=== PATIENT | male | born 1965 | race Two or more races ===

== ENCOUNTER 2025-06-06 00:53 | Inpatient (IN) | payer BC, OTHER ==
[~2025-06-06] VITALS: Ht 175.3 cm; Wt 105.1 kg
[2025-06-06] VITALS (9 sets, daily range): BP systolic 115–150; BP diastolic 62–102; PULSE 80–92; RESP 11–18; TEMP 96.9–97.9; O2SAT 90–98
[2025-06-06 01:14] LABS: Hematocrit 41.9 % (41.0-53.0); Hemoglobin 14.3 g/dL (13.5-17.5); Mean Corpuscular Hemoglobin 31.1 pg (28.0-32.0); Mean Corpuscular Volume 91.0 fL (80.0-100.0); Nucleated Red Blood Cells % 0.1 %
[2025-06-06 01:20] LABS: Chloride 106 mmol/L (98-107); Potassium 3.8 mmol/L (3.5-5.1); Sodium 144 mmol/L (136-145)
[2025-06-06 01:21] LABS: Anion Gap 9 (5-15); Calcium 8.8 mg/dL (8.7-10.4); Carbon Dioxide 29 mmol/L (20-31)
[2025-06-06 01:26] LABS: Glucose 109 mg/dL (74-106)
--- NOTE | 2025-06-06 01:44 | ED.PDOC ---
HPI Comments 60 year old male no reported past medical history presenting for evaluation of recurrent chest pain over the past 4 days. States he has no medical history, however, states that [facility] and they have told him many times that his blood pressure is slightly elevated, does not take any medications for this. States for the past 4 days, he has been having intermittent episodes of chest pains, happening randomly about 2-3 times per day. For the past 2 hours, he has been experiencing midsternal chest pains again, aching, constant nonradiating. Persistence prompted the patient to come to the emergency room. Upon arrival blood pressure was 166/102 mm Hg Chief Complaint: Chest Pain Time Seen by MD: 01:44 Reviewed Notes: Nurses Notes Allergies: Coded Allergies: NO KNOWN ALLERGIES (Unverified , 06/06/25) Information Source: Patient Mode of Arrival: Ambulatory Past Medical History PAST MEDICAL HISTORY: Denies Surgical History: Denies all surgeries Family History Family History: Reviewed,noncontributory to illness Social History Smoker: Cigarettes Alcohol: Denies ETOH Use Drugs: Denies Drug Use Lives In: Home Constitutional: denies: chills, diaphoresis, fatigue, fever, malaise, sweats, weakness, others EENTM: denies: blurred vision, double vision, ear bleeding, ear discharge, ear drainage, ear pain, ear ringing, eye pain, eye redness, hearing loss, mouth pain, mouth swelling, nasal discharge, nose bleeding, nose congestion, nose pain, photophobia, tearing, throat pain, throat swelling, voice changes, others Respiratory: denies: cough, hemoptysis, orthopnea, SOB at rest, shortness of breath, SOB with excertion, stridor, wheezing, others Cardiovascular: reports: chest pain; denies: dizzy spells, diaphoresis, Dyspnea on exertion, edema, irregular heart beat, left arm pain, lightheadedness, palpitations, PND, syncope, others Gastrointestinal: denies: abdomen distended, abdominal pain, blood streaked bowels, constipated, diarrhea, dysphagia, difficulty swallowing, hematemesis, melena, nausea, poor appetite, poor fluid intake, rectal bleeding, rectal pain, vomiting, others Genitourinary: denies: burning, dysuria, flank pain, frequency, hematuria, incontinence, penile discharge, penile sore, pain, testicle pain, testicle swelling, urgency, others Neurological: denies: dizziness, fainting, headache, left sided numbness, left sided weakness, numbness, paresthesia, pre-existing deficit, right sided numbness, right sided weakness, seizure, speech problems, tingling, tremors, weakness, others Musculoskeletal: denies: back pain, gout, joint pain, joint swelling, muscle pain, muscle stiffness, neck pain, others Integumetry: denies: bruises, change in color, change in hair/nails, dryness, laceration, lesions, lumps, rash, wounds, others Allergic/Immunocompromised: denies: Difficulty Healing, Frequent Infections, Hives, Itching, others Hematologic/Lymphatic: denies: anemia, blood clots, easy bleeding, easy bruising, swollen glands, others Endocrine: denies: excessive hunger, excessive sweating, excessive thirst, excessive urination, flushing, intolerance to cold, intolerance to heat, unexplained weight gain, unexplained weight loss, others Psychiatric: denies: anxiety, bipolar disorder, depression, hopeless, panic disorder, schizophrenia, sleepless, suicidal, others Physical Exam General Appearance: No Apparent Distress, Normal HEENT: Normal ENT Inspection, Pharynx Normal, TMs Normal Neck: Full Range of Motion, Non-Tender, Normal, Normal Inspection Respiratory: Chest Non-Tender, Lungs Clear, No Accessory Muscle Use, No Respiratory Distress, Normal Breath Sounds Cardiovascular: No Edema, No JVD, No Murmur, No Gallop, Normal Peripheral Pulses, Regular Rate/Rhythm Breast Exam: Deferred Gastrointestinal: No Organomegaly, Non Tender, No Pulsatile Mass, Normal Bowel Sounds, Soft Genitalia: Deferred Pelvic: Deferred Rectal: Deferred Extremities: No calf tenderness, Normal capillary refill, Normal inspection, Normal range of motion, Non-tender, No pedal edema Musculoskeletal : Apperance: Normal Neurologic: Alert, tennis 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 Was a procedure done?: No CP Differential Dx Differential Diagnosis: Angina, Anxiety / Panic Attack Differential Diagnosis: Angina, Chest Wall Pain, Costochondritis, Esophageal reflux/spasm, Gastritis, Myocardial Infarction X-Ray, Labs, Meds, VS Vital Signs Date Time Temp Pulse Resp B/P (MAP) Pulse Ox O2 Delivery O2 Flow Rate FiO2 06/06/25 02:15 98.6 77 16 158/102 (120) 95 98.6 06/06/25 02:15 Room Air* 0 21 06/06/25 02:14 158/106 06/06/25 01:04 87 06/06/25 01:00 97.5 71 18 166/107 99 97.5 Lab Test 06/06/25 02:27 06/06/25 01:01 Range/Units Troponin I High Sensitivity 3384 *H 3011 *H </=54 ng/L White Blood Count 7.1 4.4-10.8 10^3/uL Red Blood Count 4.60 4.5-5.90 10^6/uL Hemoglobin 14.3 13.5-17.5 g/dL Hematocrit 41.9 41.0-53.0 % Mean Corpuscular Volume 91.0 80.0-100.0 fL Mean Corpuscular Hemoglobin 31.1 28.0-32.0 pg Mean Corpuscular Hemoglobin Concent 34.2 32.0-36.0 g/dL Red Cell Distribution Width 13.9 11.8-14.3 % Platelet Count 236 140-450 10^3/uL Mean Platelet Volume 9.1 6.9-10.8 fL Neutrophils (%) (Auto) 48.3 37.0-80.0 % Lymphocytes (%) (Auto) 38.0 10.0-50.0 % Monocytes (%) (Auto) 8.9 0.0-12.0 % Eosinophils (%) (Auto) 4.0 0.0-7.0 % Basophils (%) (Auto) 0.8 0.0-2.0 % Neutrophils # (Auto) 3.4 1.6-8.6 10 ^3/uL Lymphocytes # (Auto) 2.7 0.4-5.4 10 ^3/uL Monocytes # (Auto) 0.6 0-1.3 10 ^3/uL Eosinophils # (Auto) 0.3 0-0.8 10 ^3/uL Basophils # (Auto) 0.1 0-0.2 10 ^3/uL Nucleated Red Blood Cells 0.1 % Prothrombin Time 9.5 9.3-11.8 sec Prothrombin Time INR 0.89 L 0.9-1.15 Activated Partial Thromboplast Time 26.4 24.5-34.5 SEC Sodium Level 144 136-145 mmol/L Potassium Level 3.8 3.5-5.1 mmol/L Chloride Level 106 98-107 mmol/L Carbon Dioxide Level 29 20-31 mmol/L Anion Gap 9 5-15 Blood Urea Nitrogen 14 9-23 mg/dL Creatinine 0.94 0.700-1.30 mg/dL Glomerular Filtration Rate Calc 92 >90 mL/min BUN/Creatinine Ratio 14.9 10.0-20.0 Serum Glucose 109 H 74-106 mg/dL Hemoglobin A1c Pending Calcium Level 8.8 8.7-10.4 mg/dL B-Type Natriuretic Peptide 143.60 0-100 pg/mL Triglycerides Level Pending Cholesterol Level Pending LDL Cholesterol Pending HDL Cholesterol Pending Vitamin B12 Level Pending Vitamin D 25-Hydroxy Pending Thyroid Stimulating Hormone (TSH) Pending Current Medications Medications (Trade) Dose Ordered Sig/Glenn Route Start Time Stop Time Status Last Admin Nitroglycerin (Ntrostat Sublingual) 0.4 mg ONCE ONCE SL 06/06/25 01:45 06/06/25 01:46 DC 06/06/25 02:14 Aspirin 364 mg ONCE ONCE PO 06/06/25 01:45 06/06/25 01:46 DC 06/06/25 02:12 Atorvastatin Calcium (Lipitor) 80 mg ONCE ONCE PO 06/06/25 01:45 06/06/25 01:46 DC 06/06/25 02:12 Heparin Sodium (Porcine) 4,000 units ONCE ONCE IV 06/06/25 01:45 06/06/25 01:46 DC 06/06/25 02:11 Heparin Sodium/ Dextrose 250 ml @ 10 mls/hr Q24H IV 06/06/25 01:45 06/06/25 02:51 Time of 1ST Reevaluation: 01:41 Reevaluation 1ST: Unchanged Patient Education/Counseling: Diagnosis, Treatment Family Education/Counseling: No Family Present SEPSIS Sepsis Screen Date sepsis recognized/suspect: Jun 06, 2025 Time Sepsis recognized/suspect: 51 Recent Procedure: No On Antibiotic Therapy: No Respiratory Rate >20: No Heart Rate >90: No Temp<36 C (96.8 F) or >38.3 C: No SBP <90 or MAP <65 mmHG: No New Acute Mental Status Change: No Is the patient on CPAP, BIPAP,: No Physician Orders Chest Portable (06/06/25 01:18) Electrocardigram (06/06/25 00:57) Troponin-I Hs (06/06/25 03:57) Electrocardigram (06/06/25 01:57) Electrocardigram (06/06/25 03:57) Platelet Monitoring (06/06/25 01:44) Heparin Per Standardized Proce (06/06/25 01:44) Discontinue All Im Injections (06/06/25 01:44) Heparin Drip/D5w 100units/Ml (06/06/25 01:45) Stat Ekg For Chest Pain (06/06/25 01:44) Vital Signs Date Time Temp Pulse Resp B/P (MAP) Pulse Ox O2 Delivery O2 Flow Rate FiO2 06/06/25 02:15 98.6 77 16 158/102 (120) 95 98.6 06/06/25 02:15 Room Air* 0 21 06/06/25 02:14 158/106 06/06/25 01:04 87 06/06/25 01:00 97.5 71 18 166/107 99 97.5 Laboratory Tests Test 06/06/25 01:01 White Blood Count 7.1 10^3/uL (4.4-10.8) Medications Medications Dose Ordered Sig/Glenn Route Start Time Stop Time Status Last Admin Dose Admin Aspirin 364 mg ONCE ONCE PO 06/06/25 01:45 06/06/25 01:46 DC 06/06/25 02:12 Atorvastatin Calcium 80 mg ONCE ONCE PO 06/06/25 01:45 06/06/25 01:46 DC 06/06/25 02:12 Heparin Sodium (Porcine) 4,000 units ONCE ONCE IV 06/06/25 01:45 06/06/25 01:46 DC 06/06/25 02:11 Heparin Sodium/ Dextrose 250 ml @ 10 mls/hr Q24H IV 06/06/25 01:45 06/06/25 02:51 Nitroglycerin 0.4 mg ONCE ONCE SL 06/06/25 01:45 06/06/25 01:46 DC 06/06/25 02:14 Departure 1 Departure Time of Disposition: 02:00 (60-year-old male with no reported past medical history reporting for midsternal chest pain over the past 4 days. Although he reports no past medical history he is noted to have elevated blood pressure and has been told in the past that he has elevated blood pressure, likely undiagnosed hypertension. Given the midsternal pressure-like chest discomfort could be very high risk for ACS. Patient's initial high sensitivity greater than 3000. EKG with no ST elevations, seems consistent with an NSTEMI. Patient was given nitroglycerin, aspirin, high-dose statin. Started on heparin drip. Feeling improved after interventions. Given that the discomfort has been going on for 4 days will defer to the admitting team to consult Cardiology in the morning.) Impression: Primary Impression: Midsternal chest pain Additional Impression: NSTEMI (non-ST elevated myocardial infarction) Disposition: ADMITTED INPATIENT Admit to: Tele Condition: Critical Critical Care Note Critical Care Time?: Yes (35 min-critical care time only) Critical care comment: Patient with NSTEMI requiring aspirin, statin, heparinization Stability Stability form required: No Heart Score Heart Score: Heart Score Response (Comments) Value History Moderate Suspicious 1 EKG Repolarization Disturb 1 Age 45-64 1 Risk Factors 1 or 2 risk factors 1 Troponin >3 x's Normal limit 2 Total 6 I personally scribed for JAXON STONE MD ([email or web address]) on 06/06/25 at 01:44. Electronically submitted by Aquilino Parra ([email or web address]). JAXON STONE MD Jun 06, 2025 01:44
--- NOTE | 2025-06-06 01:46 | DVH ---
CHEST RADIOGRAPH Indication: CP Technique: Single frontal view of the chest was obtained COMPARISON: None FINDINGS: Lines and Tubes: None Lungs: Clear Pleura: No effusion. No pneumothorax. Cardiomediastinal contours: Unremarkable Bones: Unremarkable IMPRESSION: 1. No acute disease.
[2025-06-06] MEDS: HEPARIN SODIUM (PORCINE) 5000 UNITS/ML 1ML VIAL IV ONE (02:11)
[2025-06-06] MEDS: ATORVASTATIN 20 MG TAB PO ONE (02:12)
[2025-06-06] MEDS: NITROGLYCERIN 0.4 MG SL TAB SL ONE (02:14)
[2025-06-06 02:17] LABS: BUN/Creatinine Ratio 14.9 (10.0-20.0); Blood Urea Nitrogen 14 mg/dL (9-23)
[2025-06-06] MEDS ORDERED: MORPHINE SULFATE INJ 2 MG/ml SYRG IV PRN (02:30)
[2025-06-06] MEDS ORDERED: NITROGLYCERIN 0.4 MG SL TAB SL PRN (02:30)
[2025-06-06 02:32] LABS: INR 0.89 (0.9-1.15); Partial Thromboplastin Time 26.4 SEC (24.5-34.5); Prothrombin Time 9.5 sec (9.3-11.8)
--- NOTE | 2025-06-06 02:49 | DVHHPRES ---
History of Present Illness Resident Creating Document: HOMERO SHEN RESIDENT History of Present Illness This is a 60-year-old male apparently no past medical history came to ER with a complaint of retrosternal chest pain for 4 days on and off, pain persist 5-10 minutes in each episode associated with sweating , fatigue, visual disturbance. Chest pain was 9/10 intensity, occasionally radiate to the left arm, no aggravating factor, took ibuprofen which does not help and patient finally decided came to ER. Patient denies any cardiac disease in past, never follow-up with Cardiology, no stress test or echo done before. Patient currently denies any fever, SOB, cough, abdominal pain, headache, dysuria or any other focal weakness. Patient used to drink beer daily but no history of binge drinking. Past medical history/: As above Past surgical: Nothing contributory Family history:-father post-prostate cancer Personal: Drink beer daily, current smoker but denies any illicit drug use. Allergy: No known allergy PCP: Not selected Home medication: None Review of Systems Constitutional: Yes: Sweats, Malaise; No: Fever, Chills, Weakness, Other Eyes: No: Pain, Vision change, Conjunctivae inflammation, Eyelid inflammation, Other, Redness ENT: No: Ear pain, Ear discharge, Nose pain, Nose discharge, Nose congestion, Mouth pain, Mouth swelling, Throat pain, Throat swelling, Other Respiratory: No: Cough, Dry, Shortness of breath, SOB with excertion, Wheezing, Hemoptysis, Pleuritic Pain, Sputum, Wheezing, Other Cardiovascular: Chest Pain; No: Palpitations, Orthopnea, Paroxysmal Noc. Dyspnea, Edema, Lt Headedness, Other Gastrointestinal: No: Nausea, Vomiting, Abdominal Pain, Diarrhea, Constipation, Melena, Hematochezia, Other Genitourinary: No Dysuria, No Frequency, No Incontinence, No Hematuria, No Retention, No Other Musculoskeletal: No: other, neck pain, shoulder pain, arm pain, back pain, hand pain, leg pain, foot pain Skin: No: Rash, Lesions, Jaundice, Bruising, Other Neurological: No: Weakness, Numbness, Incoordination, Change in speech, Confusion, Seizures, Other Allergies: Coded Allergies: NO KNOWN ALLERGIES (Unverified , 06/06/25) Medications Current Medications Medications Dose Ordered Sig/Glenn Route Start Time Stop Time Status Last Admin Dose Admin Heparin Sodium/ Dextrose 250 ml @ 12.612 mls/ hr [id number] IV 06/06/25 01:45 UNV Exam Vital Signs Vital Signs Date Time Temp Pulse Resp B/P (MAP) Pulse Ox O2 Delivery O2 Flow Rate FiO2 06/06/25 02:14 158/106 06/06/25 01:04 87 06/06/25 01:00 97.5 18 99 97.5 General Appearance: Alert, Oriented X3, Cooperative, moderate distress HEENT: Atraumatic, PERRLA, EOMI Respiratory: Clear to auscultation, Normal air movement Cardiovascular: Regular rate, Normal S1, Normal S2, No murmurs Abdominal: Normal bowel sounds, No tenderness, No hepatospenomegaly Extremities: No clubbing, No cyanosis, No edema Skin: No rashes, No breakdown Neuro: Normal gait, Normal speech, Strength at 5/5 X4 ext, Cranial nerves 3-12 NL Psych/Mental Status: Mental status NL, Mood NL Labs/Xrays Labs Test 06/06/25 02:27 06/06/25 01:01 Range/Units White Blood Count 7.1 4.4-10.8 10^3/uL Red Blood Count 4.60 4.5-5.90 10^6/uL Hemoglobin 14.3 13.5-17.5 g/dL Hematocrit 41.9 41.0-53.0 % Mean Corpuscular Volume 91.0 80.0-100.0 fL Mean Corpuscular Hemoglobin 31.1 28.0-32.0 pg Mean Corpuscular Hemoglobin Concent 34.2 32.0-36.0 g/dL Red Cell Distribution Width 13.9 11.8-14.3 % Platelet Count 236 140-450 10^3/uL Mean Platelet Volume 9.1 6.9-10.8 fL Neutrophils (%) (Auto) 48.3 37.0-80.0 % Lymphocytes (%) (Auto) 38.0 10.0-50.0 % Monocytes (%) (Auto) 8.9 0.0-12.0 % Eosinophils (%) (Auto) 4.0 0.0-7.0 % Basophils (%) (Auto) 0.8 0.0-2.0 % Neutrophils # (Auto) 3.4 1.6-8.6 10 ^3/uL Lymphocytes # (Auto) 2.7 0.4-5.4 10 ^3/uL Monocytes # (Auto) 0.6 0-1.3 10 ^3/uL Eosinophils # (Auto) 0.3 0-0.8 10 ^3/uL Basophils # (Auto) 0.1 0-0.2 10 ^3/uL Nucleated Red Blood Cells 0.1 % Prothrombin Time 9.5 9.3-11.8 sec Prothrombin Time INR 0.89 L 0.9-1.15 Activated Partial Thromboplast Time 26.4 24.5-34.5 SEC Sodium Level 144 136-145 mmol/L Potassium Level 3.8 3.5-5.1 mmol/L Chloride Level 106 98-107 mmol/L Carbon Dioxide Level 29 20-31 mmol/L Anion Gap 9 5-15 Blood Urea Nitrogen 14 9-23 mg/dL Creatinine 0.94 0.700-1.30 mg/dL Glomerular Filtration Rate Calc 92 >90 mL/min BUN/Creatinine Ratio 14.9 10.0-20.0 Serum Glucose 109 H 74-106 mg/dL Calcium Level 8.8 8.7-10.4 mg/dL B-Type Natriuretic Peptide 143.60 0-100 pg/mL SEPSIS Sepsis Screen Date sepsis recognized/suspect: Jun 06, 2025 Time Sepsis recognized/suspect: 51 Recent Procedure: No On Antibiotic Therapy: No Respiratory Rate >20: No Heart Rate >90: No Temp<36 C (96.8 F) or >38.3 C: No SBP <90 or MAP <65 mmHG: No New Acute Mental Status Change: No Is the patient on CPAP, BIPAP,: No Physician Orders Chest Portable (06/06/25 01:18) Electrocardigram (06/06/25 00:57) Troponin-I Hs (06/06/25 01:57) Troponin-I Hs (06/06/25 03:57) Electrocardigram (06/06/25 01:57) Electrocardigram (06/06/25 03:57) Platelet Monitoring (06/06/25 01:44) Heparin Per Standardized Proce (06/06/25 01:44) Discontinue All Im Injections (06/06/25 01:44) Heparin Drip/D5w 100units/Ml (06/06/25 01:45) Stat Ekg For Chest Pain (06/06/25 01:44) Admit (06/06/25 02:28) Code Status (06/06/25 02:28) Cardiac Diet-2gna,Lofat,Lochol (06/06/25 Breakfast) Echo 2d Mode Cardiac Dop (06/06/25 02:28) Nitroglycerin Sublingual (Ntrostat Subli (06/06/25 02:30) Morphine Sulfate Injection (06/06/25 02:30) Oxygen By Nasal Cannula (06/06/25 02:28) Notify Of Changes From Base (06/06/25 02:28) Lens Grinder For 24 Hours (06/06/25 02:28) Emergency Dysrhythmia Protocol (06/06/25 02:28) Rhythm Strips Once Every Shift (06/06/25 02:28) Pantoprazole Tablet (Protonix Tablet) (06/06/25 06:00) Aspirin Enteric Coated Tablet (Ecotrin E (06/06/25 10:00) Atorvastatin (Lipitor) (06/06/25 22:00) * Cardiology Consult (06/06/25 02:33) Vital Signs Date Time Temp Pulse Resp B/P (MAP) Pulse Ox O2 Delivery O2 Flow Rate FiO2 06/06/25 02:14 158/106 06/06/25 01:04 87 06/06/25 01:00 97.5 71 18 166/107 99 97.5 Laboratory Tests Test 06/06/25 01:01 White Blood Count 7.1 10^3/uL (4.4-10.8) Medications Medications Dose Ordered Sig/Glenn Route Start Time Stop Time Status Last Admin Dose Admin Aspirin 364 mg ONCE ONCE PO 06/06/25 01:45 06/06/25 01:46 DC 06/06/25 02:12 364 MG Atorvastatin Calcium 80 mg ONCE ONCE PO 06/06/25 01:45 06/06/25 01:46 DC 06/06/25 02:12 80 MG Heparin Sodium (Porcine) 4,000 units ONCE ONCE IV 06/06/25 01:45 06/06/25 01:46 DC 06/06/25 02:11 4,000 UNITS Nitroglycerin 0.4 mg ONCE ONCE SL 06/06/25 01:45 06/06/25 01:46 DC 06/06/25 02:14 0.4 MG Assessment/Plan Assessment/Plan Acute chest pain due to NSTEMI Rule out alcohol induced cardiomyopathy Hypertensive heart disease In ER patient received nitroglycerin, aspirin loading dose, atorvastatin, heparin drip EKG: Sinus rhythm, no acute ST changes, heart rate 87, QTC 483 PT PTT BNP : 143.60 Troponin: 3011 repeat troponin 3384> 3539 CXR: No acute cardiopulmonary disease Aspirin Atorvastatin Losartan Heparin drip Nitroglycerin sublingually p.r.n. Morphine for chest pain as needed. Monitor EKG, lab, ECHO Cardiology consult Prediabetic, HbA1C 5.8 Mixed hyperlipidemia - Counseled patient regarding low carb diet, weight loss, lifestyle modification and physical exercise TG 193, total cholesterol 267, LDL 189, HDL 50 Atorvastatin Vitamin D deficiency - Vitamin-D 03687 units Q 7D Alcohol use disorder Drinks beer daily Counseling done. Current smoker >13 minutes spent for counseling. Obesity, BMI 34.2 LIFE STYLE MODIFICATION. Diet: NPO DVT prophylaxis: Heparin GI prophylaxis: Pantoprazole Goals of care discussion. More than 27 minute spent with patient. Full code status. Case discussed with Dr. Paul. Plan discussed with: Patient, Other (Nurse, girlfriend-Soheila) My Orders Orders - HOMERO SHEN RESIDENT Procedure Category Date Status Time Admit ADMIT 06/06/25 Transmitted 02:28 Code Status CODE 06/06/25 Transmitted 02:28 Cardiac DIET 06/06/25 Transmitted Diet-2gna,Lofat,Lochol Breakfast Echo 2d Mode Cardiac US 06/06/25 Logged DOP 02:28 Nitroglycerin PHA 06/06/25 Logged Sublingual (Ntrostat 02:30 Morphine Sulfate PHA 06/06/25 Logged Injection 02:30 Oxygen By Nasal RT 06/06/25 Transmitted Cannula 02:28 Notify Of Changes [facility] 06/06/25 In Process From Base 02:28 Lens Grinder For [facility] 06/06/25 In Process 24 Hours 02:28 Emergency Dysrhythmia [facility] 06/06/25 In Process Protocol 02:28 Rhythm Strips Once [facility] 06/06/25 In Process Every Shift 02:28 Pantoprazole Tablet [facility] 06/06/25 Logged (Protonix Tablet) 06:00 Aspirin Enteric PHA 06/06/25 Logged Coated Tablet 10:00 Atorvastatin (Lipitor) PHA 06/06/25 Logged 22:00 * Cardiology Consult CONS 06/06/25 Verified 02:33 Visit Coding STANDARD RES Billing Provider: BRYN PAUL MD Date of Service if different f: Jun 06, 2025 Common Visit Codes: 67104-GPNYABH INP/OBS CARE (HIGH) Secondary Visit Codes: 88691-[id number] CARE PLAN 30 MINUTES HOMERO SHEN RESIDENT Jun 06, 2025 02:49 VERITO SHANKS RESIDENT Jun 06, 2025 04:31
[2025-06-06] MEDS: HEPARIN DRIP/D5W 100UNITS/ML 250 ML IV SCH ×2 (02:51→10:12)
--- NOTE | 2025-06-06 03:52 | ECG ---
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
[2025-06-06] MEDS: SODIUM CHLORIDE 0.9% 1,000 ML IV SCH (04:11)
[2025-06-06 04:32] LABS: Cholesterol 267 mg/dL (< 200); HDL Cholesterol 58 mg/dL (40-59); Triglycerides 193 mg/dL (< 150)
[2025-06-06] MEDS: PANTOPRAZOLE 40 MG TAB PO SCH (06:00)
--- NOTE | 2025-06-06 06:48 | ECG ---
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
[2025-06-06 08:45] LABS: Urine Budding Yeast OCCASIONAL /hpf (None Seen); Urine Protein, UAD TRACE (Negative)
[2025-06-06 09:07] LABS: Amphetamine Screen, Urine Pos (NEGATIVE); Barbiturate Scree,Urine Neg (NEGATIVE); Benzodiazephine Screen, Urine Neg (NEGATIVE); Cannabinoid Screen, Urine Neg (NEGATIVE); Cocaine Screen, Urine Neg (NEGATIVE); Opiate Scree,Urine Neg (NEGATIVE); Phencyclidine Screen, Urine Neg (NEGATIVE)
[2025-06-06 09:27] LABS: Magnesium 1.9 mg/dL (1.6-2.6); Triglycerides 123.0 mg/dL (< 150)
[2025-06-06 09:29] LABS: HDL Cholesterol 57.0 mg/dL (40-59)
[2025-06-06 09:31] LABS: Cholesterol 253.0 mg/dL (< 200)
[2025-06-06 09:40] LABS: INR 0.93 (0.9-1.15); Partial Thromboplastin Time 36.3 SEC (24.5-34.5); Prothrombin Time 9.9 sec (9.3-11.8)
--- NOTE | 2025-06-06 09:53 | DVHINCON2 ---
Date Seen: Jun 06, 2025 Referring Physician MD [place] resident Reason for Consultation NSTEMI History of Present Illness This is a 60-year-old male patient who presents to the emergency room with chief complaint of chest pain. The patient reports that the chest pain began approximately four days ago. He reports that he is currently moving into a different home and initially noticed chest pain while in the process of moving his belongings. He describes the pain as unprovoked, constant, tight in nature, substernal with radiating left arm numbness. He reports that he took a shot of whiskey at home to see if it would help, but it did not. He states he also tried to take [id number] ibuprofen with no relief. He decided to come to the emergency room for further evaluation after experiencing intense chest pain while driving. Initial twelve lead electrocardiogram reveals normal sinus rhythm with nonspecific ST segment depression to lateral leads and Q-waves seen in inferior leads. Initial troponin level of 3011ng/L with peak level at 3539 ng/L. Significant past medical history includes hypertension, daily alcohol use, tobacco use, and obesity. The patient reports that he does not regularly see a primary care physician and does not take any prescribed medications. Past Medical History Past medical history reviewed. No other significant than mentioned above. Past Surgical History Denies any previous surgeries Family History Family history reviewed. Social History Patient has a two pack-year history, smokes 3-4 cigarettes per day Patient states that he drinks at least two beers and one mixed drink every day Patient denies illicit drug use--------toxicology screen positive for amphetamines Allergies: Coded Allergies: NO KNOWN ALLERGIES (Unverified , 06/06/25) Home Meds Patient denies taking any prescribed medications Current Medications Current Medications Medications (Trade) Dose Ordered Sig/Glenn Route PRN Reason Start Time Stop Time Status Last Admin Heparin Sodium/ Dextrose 250 ml @ 10 mls/hr Q24H IV 06/06/25 01:45 06/06/25 02:51 Nitroglycerin (Ntrostat Sublingual) 0.4 mg Q5MINP PRN SL FOR CHEST PAIN 06/06/25 02:30 Morphine Sulfate 2 mg Q30M PRN IV FOR CHEST PAIN 06/06/25 02:30 06/06/25 08:45 DC Pantoprazole Sodium (Protonix Tablet) 40 mg DAILY@0600 PO 06/06/25 06:00 Aspirin (Ecotrin Enteric Coated Tablet) 81 mg DAILY PO 06/06/25 10:00 Atorvastatin Calcium (Lipitor) 40 mg HS PO 06/06/25 22:00 Sodium Chloride 1,000 ml @ 75 mls/hr [id number] IV 06/06/25 04:00 06/06/25 07:10 DC 06/06/25 04:11 Morphine Sulfate 2 mg Q30M PRN IV FOR CHEST PAIN 06/06/25 08:45 Review of Systems Constitutional: No symptom reported Ears, Nose, & Throat: No symptom reported Eyes: No symptom reported Neurological: No symptoms reported Pulmonary/Respiratory: No symptoms reported Cardiovascular: Chest pain Gastrointestinal: No symptom reported Genitourinary: No symptom reported Musculoskeletal: No symptom reported Skin: No symptom reported Psychiatric: No symptom reported Endocrine: No symptom reported Hematologic/Lymphatic: No symptom reported Vital Signs Vital Signs Date Time Temp Pulse Resp B/P (MAP) Pulse Ox O2 Delivery O2 Flow Rate FiO2 06/06/25 07:23 81 12 94 Room Air* 0 21 06/06/25 07:23 97.8 164/92 (116) 97.8 Physical Exam General Appearance: Cooperative. Morbidly obese Pulmonary/Respiratory: Clear, bilateral breaths sounds. Cardiovascular/Chest: Regular rate and rhythm. Peripheral Pulses: 2+ Radial (R). 2+ Radial (L). 2+ Pedal (R). 2+ Pedal (L) Abdominal Exam: Normal bowel sounds. Ankle Exam: Negative ankle edema Lower extremities: Negative lower extremity edema Neuro/Mental Status: A/OX4, coherent. Thoughts/Psych: Normal thought pattern. Appropriate mood and affect. Good judgment and insight. Appearance: No acute distress. Skin Exam: Normal inspection. Normal color. Warm and dry. Labs/Diagnostic Data Labs Test 06/06/25 09:07 06/06/25 08:36 06/06/25 07:20 06/06/25 01:01 Range/Units Prothrombin Time 9.9 9.3-11.8 sec Prothrombin Time INR 0.93 0.9-1.15 Activated Partial Thromboplast Time 36.3 H 24.5-34.5 SEC Troponin I High Sensitivity 2976 *H </=54 ng/L Urine Color Yellow Yellow Urine Clarity Turbid H Clear Urine pH 6.0 5.0-9.0 Urine Specific [place] 1.027 1.001-1.035 Urine Protein Trace H Negative Urine Ketones Negative Negative Urine Blood Negative Negative /uL Urine Nitrite Negative Negative Urine Bilirubin Negative Negative Urine Urobilinogen Normal Negative mg/dL Urine Leukocyte Esterase Negative Negative /uL Urine RBC 10 0 - 3 /hpf Urine Microscopic WBC < 1 0-3 /HPF Urine Squamous Epithelial Cells None seen <5 /hpf Urine Bacteria None seen None Seen /hpf Urine Mucus Few None Seen Urine Yeast (Budding) Occasional None Seen /hpf Urine Glucose Normal Normal mg/dL Urine Opiates Screen Neg NEGATIVE Urine Fentanyl Screen Neg NEGATIVE Urine Barbiturates Screen Neg NEGATIVE Urine Phencyclidine Screen Neg NEGATIVE Urine Amphetamines Screen Pos NEGATIVE Urine Benzodiazepines Screen Neg NEGATIVE Urine Cocaine Screen Neg NEGATIVE Urine Cannabinoids Screen Neg NEGATIVE Magnesium Level 1.9 1.6-2.6 mg/dL Triglycerides Level 123 < 150 mg/dL Cholesterol Level 253 H < 200 mg/dL LDL Cholesterol 188 H < 100 mg/dL HDL Cholesterol 57 40-59 mg/dL White Blood Count 7.1 4.4-10.8 10^3/uL Red Blood Count 4.60 4.5-5.90 10^6/uL Hemoglobin 14.3 13.5-17.5 g/dL Hematocrit 41.9 41.0-53.0 % Mean Corpuscular Volume 91.0 80.0-100.0 fL Mean Corpuscular Hemoglobin 31.1 28.0-32.0 pg Mean Corpuscular Hemoglobin Concent 34.2 32.0-36.0 g/dL Red Cell Distribution Width 13.9 11.8-14.3 % Platelet Count 236 140-450 10^3/uL Mean Platelet Volume 9.1 6.9-10.8 fL Neutrophils (%) (Auto) 48.3 37.0-80.0 % Lymphocytes (%) (Auto) 38.0 10.0-50.0 % Monocytes (%) (Auto) 8.9 0.0-12.0 % Eosinophils (%) (Auto) 4.0 0.0-7.0 % Basophils (%) (Auto) 0.8 0.0-2.0 % Neutrophils # (Auto) 3.4 1.6-8.6 10 ^3/uL Lymphocytes # (Auto) 2.7 0.4-5.4 10 ^3/uL Monocytes # (Auto) 0.6 0-1.3 10 ^3/uL Eosinophils # (Auto) 0.3 0-0.8 10 ^3/uL Basophils # (Auto) 0.1 0-0.2 10 ^3/uL Nucleated Red Blood Cells 0.1 % Sodium Level 144 136-145 mmol/L Potassium Level 3.8 3.5-5.1 mmol/L Chloride Level 106 98-107 mmol/L Carbon Dioxide Level 29 20-31 mmol/L Anion Gap 9 5-15 Blood Urea Nitrogen 14 9-23 mg/dL Creatinine 0.94 0.700-1.30 mg/dL Glomerular Filtration Rate Calc 92 >90 mL/min BUN/Creatinine Ratio 14.9 10.0-20.0 Serum Glucose 109 H 74-106 mg/dL Hemoglobin A1c 5.8 H <5.7 % A1C Calcium Level 8.8 8.7-10.4 mg/dL B-Type Natriuretic Peptide 143.60 0-100 pg/mL Vitamin B12 Level 274 211-911 pg/mL Vitamin D 25-Hydroxy 23.1 L 30.0-100 ng/mL Thyroid Stimulating Hormone (TSH) 1.83 0.55-4.78 uIU/mL Assessment NSTEMI, rule out coronary artery disease Hypertension Rule out structural heart disease Dyslipidemia, newly diagnosed Methamphetamine use Alcohol abuse Morbid obesity Plan/Recommendation We will continue with the following plan/recommendations (Dr. Ron): * Transthoracic echocardiogram to evaluate cardiac function * Chest pain protocol * LD score: 3 points * HEART score: 6 points * Heparin drip per ACS protocol * Single antiplatelet therapy and lipid-lowering agent * Blood pressure control * Close cardiac surveillance * Angiogram Case discussed with . Given patient clinical presentation, elevated troponin level, and twelve lead electrocardiogram changes, we will recommend for the patient undergo a coronary angiogram with left heart catheterization.The procedure was discussed with the patient in full detail including risks and benefits. Risks include but are not limited to bleeding, contrast-induced nephropathy, coronary dissection, stroke, and even . The patient understands and is agreeable to undergo the procedure. We will schedule the patient at soonest availability on 06/06/2025. Thank you for allowing us to care for this patient. Please call with any questions or concerns. Critical care time spent: 44 minutes This medical document was created using an electronic medical record system with voice recognition software and computerized dictation system. Although this document has been carefully reviewed, there might still be some phonetic and typographical errors. Occasional wrong-word or ``sound-alike substitutions may have occurred due to the inherent limitations of voice recognition software. These areas are purely typographical due to imperfections of the software programs and do not reflect any compromise in the patient's medical care. Please read the chart carefully and recognize, using context, where these substitutions have occurred. Plan discussed with: Patient NYHA Physical activity limitations: NA Date of Service: Jun 06, 2025 Billing Provider: CHICO KURTZ Cardiology Common Codes: 59202-IMVFNQI INP/OBS CARE (High) Cardiology Consultation Codes: 77441-[id number] CONSULT <45MIN CHICO KURTZ Jun 06, 2025 09:53
--- NOTE | 2025-06-06 10:05 | CONS ---
Pharmacy Clinical Information: HEPARIN DRIP, ACS PROTOCOL @0907 APTT 36.3 - NO BOLUS, INCREASE HEPARIN DRIP RATE TO 1200 UNITS/HR NEXT APTT DRAW SCHEDULED @1600 PER RX PROTOCOL CONFIRMED AND READ BACK WITH RN PROSPER CHILDERS [facility] RESIDENT Jun 06, 2025 10:05
--- NOTE | 2025-06-06 10:09 | ECG ---
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
[2025-06-06] MEDS: ASPirin-EC 81 mg tab PO SCH (10:16)
[2025-06-06] MEDS: LOSARTAN POTASSIUM 25 MG TAB PO ONE (11:25)
[2025-06-06] MEDS: MORPHINE SULFATE 4 MG/ML SYR/VIAL IV PRN (11:26)
--- NOTE | 2025-06-06 11:41 | DVHPNRES ---
Progress Note Date Seen: Jun 06, 2025 Resident Creating Document: SWETHA BHAKTA RESIDENT Medical Necessity Reason Pt with a Central, PICC or Fol: No Subjective Review of Systems This is a 60-year-old male with past medical history of hyperlipidemia, amphetamine use disorder, who came to the ER with chief complaint of retrosternal chest pain for 4 days which was 10/10 in intensity, constant patient states it comes and goes every 10 minutes each episode, Associated with neck stiffness, radiating to left arm, sweating, fatigue, no aggravating factor, relieved by nitro in the ED. patient states that he had 5 episodes of chest pain since 4 days. he states that the chest pain started when he was moving his belongings and lifting heavy weights. He reports he took a shot of whiskey at home and had a cigarette before coming to the ED. Patient states he took ibuprofen which did not help. 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 Patient denies any shortness of breath cough, fever, chills, dizziness, headache, palpitations , nausea, vomiting, diarrhea. Patient denies any sick contacts, recent travel. Past surgical history: Denies Family history: Father had prostate cancer Personal history: Drinks 3 beers daily, smokes 3-4 cigarettes per day, uses meth Medications: Denies any home medications lives: Alone PCP: Dr. Carrizales 06/06/2025: Patient seen at bedside. Patient is to get a angiogram today. Patient states pain is 2/10 intensity, slight soreness in the back of her his neck, jaw, tense feeling in the back. Patient states he wants PCP. He denies any shortness of breath, palpitations, abdominal pain, nausea, vomiting, dizziness. Echo ordered, patient is on heparin drip. Objective vital signs Vital Sign Date Time Temp Pulse Resp B/P (MAP) Pulse Ox O2 Delivery O2 Flow Rate FiO2 06/06/25 11:26 72 18 169/113 06/06/25 07:23 94 Room Air* 0 21 06/06/25 07:23 97.8 97.8 medications Current Medications Medications Dose Ordered Sig/Glenn Route Start Time Stop Time Status Last Admin Dose Admin Nitroglycerin 0.4 mg Q5MINP PRN SL 06/06/25 02:30 Pantoprazole Sodium 40 mg DAILY@0600 PO 06/06/25 06:00 Aspirin 81 mg DAILY PO 06/06/25 10:00 06/06/25 10:16 81 MG Atorvastatin Calcium 40 mg HS PO 06/06/25 22:00 Morphine Sulfate 2 mg Q30M PRN IV 06/06/25 08:45 06/06/25 11:26 2 MG Heparin Sodium/ Dextrose 250 ml @ 12 mls/hr [id number] IV 06/06/25 10:15 06/06/25 10:12 12 MLS/HR Losartan Potassium 25 mg DAILY PO 06/07/25 10:00 Examination General: Patient alert and oriented in person, place and time. Patient following commands. HEENT: Normocephalic, atraumatic, moist mucous membranes Respiratory/pulmonary: Clear lungs bilaterally, vesicular murmurs present in almost all lung ayoub, no associated crackles or wheezes. Cardiovascular: Normal heart sounds S1 and S2 with no associated murmurs Abdomen: Abdomen nondistended, there is no pain to palpation in any of the abdominal quadrants, no palpable masses. Obese abdomen Extremities: There is no peripheral edema present at the lower extremities. Peripheral Pulses: 3+ Radial (R). 3+ Radial (L). 3+ Dorsalis pedis (R). 3+ Dorsalis pedis(L) Skin: No rashes or pruritus, there is no sacral edema present at this time. Neurological: Intact cranial nerves with no focal neurologic deficits laboratory and microbiology Laboratory Tests 06/06/25 01:01 Test 06/06/25 01:01 Range/Units Serum Glucose 109 H 74-106 mg/dL Problem List/Assessment/Plan Problem List/Assessment/Plan Acute chest pain due to NSTEMI Rule out alcohol induced cardiomyopathy Hypertensive heart disease EKG: Sinus rhythm, no acute ST changes, heart rate 87, QTC 483 BNP : 143.60 Troponin: 3011 repeat troponin 3384> 3539 CXR: No acute cardiopulmonary disease Aspirin Atorvastatin Losartan Heparin drip Nitroglycerin sublingually p.r.n. - ECHO Cardiology consult - angiogram done Heart score: 7 Prediabetic, HbA1C 5.8 Mixed hyperlipidemia - Counseled patient regarding low carb diet, weight loss, lifestyle modification and physical exercise TG 193, total cholesterol 267, LDL 189, HDL 50 Atorvastatin Vitamin D deficiency - Vitamin-D 94988 units Q 7D Alcohol use disorder Nicotine use disorder amphetamine use disorder -patient counseled on cessation of alcohol, smoking, meth use for greater than 18 minutes Obesity, BMI 34.2 -patient counseled on diet, exercise, lifestyle modifications for 18 minutes Diet: NPO DVT prophylaxis: Heparin GI prophylaxis: Pantoprazole Goals of care addressed with the patient for more than 27 minutes: Full code status Case discussed with , patient and nurse Plan discussed with: Patient Visit Coding STANDARD RES Billing Provider: OLIVIA HANNA MD Date of Service if different f: Jun 06, 2025 Common Visit Codes: [id number] INP/OBS CARE(HIGH) SWETHA BHAKTA RESIDENT Jun 06, 2025 11:41 OLIVIA HANNA MD Jun 06, 2025 18:47
[2025-06-06] MEDS: HEPARIN SODIUM (PORCINE) 5000 UNITS/ML 1ML VIAL ONE (16:13)
[2025-06-06] MEDS: ANGIOMAX 250 MG VIAL IV ONE ×2 (16:13→17:39)
[2025-06-06] MEDS: SODIUM CHL 0.9% 50 ML ONE ×2 (16:14→17:39)
[2025-06-06] MEDS: VERAPAMIL 2.5MG/ML INJ 2ML VIAL IV ONE (16:14)
[2025-06-06] MEDS: MIDAZOLAM HCL 2MG/2ML 2ml VIAL (1mg/ml) ONE ×2 (16:14→17:35)
[2025-06-06] MEDS: fentaNYL CITRATE 100 MCG/2 ML VL ONE ×2 (16:14→17:35)
[2025-06-06] MEDS: LIDOCAINE 2%HCL (LOCAL ANESTH.) INJ 20ML MDV ONE (16:14)
[2025-06-06] MEDS: IODIXANOL 320MG/ML 100ML BTL IV ONE ×2 (16:15→17:35)
[2025-06-06] MEDS: hydrALAZINE HCL 20 MG/ML VL ONE (17:56)
[2025-06-06] MEDS: NITROGLYCERIN 0.4MG/DOSE SPRAY 4.9GM ONE (18:08)
[2025-06-06] MEDS: CLOPIDOGREL BISULFATE 75 MG TAB ONE (18:09)
--- NOTE | 2025-06-06 18:28 | DVHOP2 ---
Operative Report - 2 Report Details Date: 06/06/25 Preop Diagnosis: CAD. Acute coronary syndrome. Postop Diagnosis: PTCA stent of the LAD and diagonal bifurcation. Surgeon: Alice Ron MD Anesthesiologist: Conscious sedation Anesthesia: General, Mac Consent: The patient was informed of the risks and benefits of the procedure. These include but are not limited to complications of anesthesia, postoperative infection, incomplete relief of symptoms, recurrence of symptoms, damage to blood vessels, nerves and tendons, deep venous thrombosis, pulmonary embolism and possible need for repeat surgery in the future. Complications: No complications Findings: Severe stenosis of the LAD diagonal bifurcation Indications for Surgery: Chest pain acute coronary syndrome Name of Procedure Performed Left heart catheterization bilateral cine coronary angiography. Left ventriculography. PTCA and stenting of the LAD diagonal. Intravascular ultrasound evaluation of the LAD. Procedure Details Procedure Details: Prior local anesthesia with 2% lidocaine to the right wrist and full informed consent obtained the patient was prepped and draped in usual fashion followed by placement of a six [place] sheath into the radial artery. We then used a three five EBU guide perform angiography of both right and left coronary ostium and a multipurpose catheter for ventriculography without complications. Details of angioplasty as will be delineated below. Hemodynamics: Aortic blood pressure was 150/80 end-diastolic pressure was 16. There was no gradient across the aortic valve on pullback. Coronary anatomy: The RCA is large and dominant PDA and posterolateral branches are normal as is the RCA The left main is large. It is normal. Left anterior descending is a large vessel. At the level of the 1st diagonal there was a 99% subtotal stenosis with LD is aorta one flow into the LAD and diagonal vessel. The mid and distal segments of the LAD are otherwise within normal limits. Circumflex has two obtuse marginals free of significant disease. Ventriculography in the MCMILLAN projection shows an EF of approximately 40% with anterior apical hypokinesis. Angioplasty was performed for which a three five EBU guide was placed into the left main and a Specter wire placing each of the vessels at the level of the bifurcation into the diagonal and LAD. We performed intravascular ultrasound evaluation of the left anterior descending coronary artery noting it to be a three five vessel distally and a four five vessel proximal. We pre-dilated the left anterior descending coronary artery with a three five balloon. We then placed a 3-0 by 12 mm stent into the diagonal and inflation of the toe proximally 14 atmospheres. We have placed a three five stent distal to the diagonal and retracted the stent after retracting the diagonal balloon performed a DK crush stenting technique crushing the diagonal stent into the left anterior descending coronary artery with the LAD stent at a proximally 14 atmospheres. We then retracted the wire from the diagonal and reinserted the wire and placed a 3-0 noncompliant balloon into the diagonal and dilated through the struts. We then took a 4.5 mm noncompliant balloon and dilated from the diagonal artery into the proximal LAD at approximately 14 atmospheres. Dual balloon Kissing technique was used on the diagonal and LAD simultaneously. There was excellent antegrade flow without thrombus formation under dissection into the diagonal and LAD. The patient was moving significantly and lifted his right arm. As a consequence we lost wires in both diagonal and LAD arteries, and extra time, contrast and fluoroscopy were necessary to reestablish proper patency with postdilatation of the LAD and diagonal arteries. Patient tolerated the procedure well no complications . Impression: Successful PTCA and stenting of LAD diagonal bifurcation with a DK crushing balloon technique. Decreased left ventricular ejection fraction. Mildly elevated left ventricular end-diastolic pressures. Recommendations: Dual antiplatelet therapy risk factor modification to continue. Condition Good Disposition Still a Patient Date of Service: Jun 06, 2025 Billing Provider: ALICE RON Sr., MD Cardiology Common Codes: 74032-CLCOLAX INP/OBS CARE (High) Cardiology Procedure Codes: 96583 -PTCA W/STENT PLACEMENT, 50534-LREQ ADD CORONARY BRANCH, 34974-CYGK HEART CATH W/INTRA INJ ALICE RON Sr., MD Jun 06, 2025 18:28
[2025-06-06] MEDS: ATORVASTATIN 20 MG TAB PO SCH (21:22)
[2025-06-06] MEDS: HYDROcodone-ACET 5/325MG TAB PO PRN (23:08)
[2025-06-06] MEDS: LOSARTAN POTASSIUM 25 MG TAB PO SCH (23:09)
[2025-06-07 01:00] VITALS: BP 128/75; PULSE 85; RESP 18; TEMP 97.9; O2SAT 95
[2025-06-07] MEDS: METOPROLOL TARTRATE 25 MG TAB PO ONE (04:08)
[2025-06-07 05:32] VITALS: BP 134/91; PULSE 66; RESP 18; O2SAT 96
[2025-06-07 06:35] LABS: Hematocrit 40.0 % (41.0-53.0); Hemoglobin 13.9 g/dL (13.5-17.5); Mean Corpuscular Hemoglobin 31.3 pg (28.0-32.0); Mean Corpuscular Volume 90.0 fL (80.0-100.0); Nucleated Red Blood Cells % 0.0 %
[2025-06-07 06:52] LABS: Alanine Aminotransferase 27 U/L (7-40); Albumin 3.9 g/dL (3.2-4.8); Alkaline Phosphatase 77 U/L (46-116); Anion Gap 9 (5-15); BUN/Creatinine Ratio 16.2 (10.0-20.0); Blood Urea Nitrogen 12 mg/dL (9-23); Carbon Dioxide 27 mmol/L (20-31); Chloride 105 mmol/L (98-107); Glucose 95 mg/dL (74-106); Potassium 3.6 mmol/L (3.5-5.1); Sodium 141 mmol/L (136-145); Total Protein 6.8 g/dL (5.7-8.2)
[2025-06-07 06:53] LABS: Bilirubin, Total 0.8 mg/dL (0.2-1.0); Calcium 8.4 mg/dL (8.7-10.4)
[2025-06-07 08:00] VITALS: PULSE 63; RESP 18; O2SAT 94
[2025-06-07 09:00] VITALS: BP 145/93; PULSE 63; RESP 18; TEMP 98.4; O2SAT 94
[2025-06-07] MEDS: CLOPIDOGREL BISULFATE 75 MG TAB PO SCH (09:21)
[2025-06-07] MEDS: LOSARTAN POTASSIUM 25 MG TAB PO SCH (09:22)
[2025-06-07] MEDS: METOPROLOL SUCCINATE XL 50 MG TAB PO SCH (09:23)
[2025-06-07] MEDS ORDERED: LOSARTAN POTASSIUM 25 MG TAB PO SCH (10:00)
[2025-06-07] MEDS ORDERED: METOPROLOL TARTRATE 25 MG TAB PO SCH (10:00)
[2025-06-07] MEDS ORDERED: CLOP75TA70 PO (12:33)
[2025-06-07] MEDS ORDERED: ASPI-543 PO (12:33)
[2025-06-07] MEDS ORDERED: LOSA-534 PO (12:33)
[2025-06-07] MEDS ORDERED: ATOR20TA50 PO (12:33)
[2025-06-07] MEDS ORDERED: FURO1TAB33 PO (12:34)
[2025-06-07] MEDS ORDERED: METO25TA93 PO (12:34)
[2025-06-07] MEDS ORDERED: POTA-36 PO (12:34)
[2025-06-07] MEDS: FUROSEMIDE 40 MG/4 ML VIAL IV ONE (12:55)
[2025-06-07 13:00] VITALS: BP 150/105; PULSE 65; RESP 16; TEMP 97; O2SAT 96
--- NOTE | 2025-06-07 13:44 | DVHSR ---
APPROVED REPORT EXAM: Two-dimensional and M-mode echocardiogram with Doppler and color Doppler. Blood Pressure: 162/92 mmHg INDICATION Chest Pain RISK FACTORS Height: 5' 9", Weight: 231 DIMENSIONS LVDd 5.4 (3.8-5.7cm) LA (2D) 3.9 (1.9-4.0cm) Aortic Root 4.0 (2.0-3.7cm) LVDs 3.8 (2.5-4.0cm) LA (MM) (1.9-4.0cm) Aortic Cusp Exc 1.8 (1.5-2.0cm) EF (%) 55.0 (55-70%) Rt. Atrium 3.5 (1.9-4.0cm) Asc. Aorta cm IVSd 1.4 (0.7-1.1cm) RV (D) (1.8-2.4cm) PWd 1.3 (0.7-1.1cm) Mitral Valve Mitral Mitral Stenosis E wave 0.70m/s MV Mean GR. mmHg A wave 1.10m/s MV Peak GR. mmHg E/A ratio 0.6 2D MVA cm2 Aortic Valve Aortic Valve Aortic Stenosis V1 1.10m/s AO Mean GR. 6mmHg V2 1.60m/s AO Peak GR. 10mmHg LVOT Diameter 2.3 (1.8-2.4cm) Doppler RADHA 2.85cm2 Pulmonic Valve V2 0.80m/s Tricuspid Valve TR Velocity 2.50m/s RVSP 30mmHg Conclusion 1) Low normal left ventricle systolic function with estimated ejection fraction of 50-55%. There is mild hypokinesis in the apical septal wall. 2)Normal right ventricle size and function 3)Mild mitral and tricuspid regurgitation 4) Mildly dilated aortic root of 4.0 cm
--- NOTE | 2025-06-07 14:04 | DVHPN2 ---
Consult Progress Note Subjective Patient reports: Feels better Review of Systems: CVS:Abnormal (mild Chest discomfort) Objective vital signs Vital Sign Date Time Temp Pulse Resp B/P (MAP) Pulse Ox O2 Delivery O2 Flow Rate FiO2 06/07/25 13:00 97.0 65 16 150/105 (120) 96 97.0 06/07/25 08:00 Room Air* 0 21 Total Intake and Output 06/06/25 06/06/25 06/07/25 15:00 23:00 07:00 Intake Total 300 ml Balance 300 ml medications Current Medications Medications Dose Ordered Sig/Glenn Route Start Time Stop Time Status Last Admin Dose Admin Nitroglycerin 0.4 mg Q5MINP PRN SL 06/06/25 02:30 Pantoprazole Sodium 40 mg DAILY@0600 PO 06/06/25 06:00 06/07/25 05:25 40 MG Aspirin 81 mg DAILY PO 06/06/25 10:00 06/07/25 09:22 81 MG Atorvastatin Calcium 40 mg HS PO 06/06/25 22:00 Clopidogrel Bisulfate 75 mg DAILY PO 06/07/25 10:00 06/07/25 09:21 75 MG Acetaminophen/ Hydrocodone Bitart 1 tab Q4HPRN PRN PO 06/06/25 22:15 06/07/25 11:55 1 TAB Losartan Potassium 75 mg DAILY PO 06/07/25 10:00 06/07/25 09:22 75 MG Metoprolol Succinate 25 mg DAILY PO 06/07/25 10:00 06/07/25 09:23 25 MG Examination: CVS:Normal (Telemetry consistent with sinus rhythm at 66 beats per minute) laboratory and microbiology Laboratory Tests 06/07/25 05:29 Test 06/07/25 05:29 Range/Units Serum Glucose 95 74-106 mg/dL Problem List/Assessment/Plan Problem List/Assessment/Plan NSTEMI, rule out coronary artery disease Hypertension Rule out structural heart disease Dyslipidemia, newly diagnosed Methamphetamine use Alcohol abuse Morbid obesity Plan/Recommendation We will continue with the following plan/recommendations (Dr. Ron): * Transthoracic echocardiogram to evaluate cardiac function * Chest pain protocol * LD score: 3 points * HEART score: 6 points * Heparin drip per ACS protocol * Single antiplatelet therapy and lipid-lowering agent * Blood pressure control * Close cardiac surveillance * Angiogram Case discussed with . Given patient clinical presentation, elevated troponin level, and twelve lead electrocardiogram changes, status post coronary angiogram with left heart catheterization with successful PTCA and stenting to the LAD/diagonal bifurcation with a DK crushing balloon technique. Continue DAPT with Plavix and aspirin. Follow up echo showing low-normal ER 50-55% mild hypokinesis in the apical septal wall. Mildly dilated aortic root 4.0 cm. Titrate BP meds. Outpatient cardiology follow up advised. Patient also advised methamphetamine use cessation. Thank you for allowing us to care for this patient. Please call with any questions or concerns. Critical care time spent: 36 minutes. Stable from cardiac standpoint for DC on his medications already for pickup pharmacy with DAPT. Plan discussed with: Patient Date of Service: Jun 07, 2025 Billing Provider: ETHAN BELL Common Visit Codes: [id number] INP/OBS CARE(HIGH), 83688-[id number] CARE 30-74 MIN ETHAN BELL Jun 07, 2025 14:04
[2025-06-07 16:49] VITALS: BP 119/88; PULSE 68; RESP 18; TEMP 98.2; O2SAT 95
--- NOTE | 2025-06-07 17:12 | DVHDSRES ---
Discharge Summary Date of Admission Resident Creating Document: FAROOQ MALAGON RESIDENT Jun 06, 2025 at 02:28 Date of Discharge: Jun 07, 2025 Admitting Diagnosis Acute chest pain due to NSTEMI Rule out alcohol induced cardiomyopathy Hypertensive heart disease Prediabetic, HbA1C 5.8 Mixed hyperlipidemia Vitamin D deficiency Alcohol use disorder Current smoker Obesity, BMI 34.2 Wounds: none Labs/Diagnostic Data: Laboratory Results Test 06/07/25 05:29 06/06/25 09:07 06/06/25 08:36 06/06/25 07:20 White Blood Count 7.4 10^3/uL (4.4-10.8) Red Blood Count 4.45 10^6/uL (4.5-5.90) Hemoglobin 13.9 g/dL (13.5-17.5) Hematocrit 40.0 % (41.0-53.0) Mean Corpuscular Volume 90.0 fL (80.0-100.0) Mean Corpuscular Hemoglobin 31.3 pg (28.0-32.0) Mean Corpuscular Hemoglobin Concent 34.8 g/dL (32.0-36.0) Red Cell Distribution Width 14.0 % (11.8-14.3) Platelet Count 214 10^3/uL (140-450) Mean Platelet Volume 9.3 fL (6.9-10.8) Neutrophils (%) (Auto) 58.7 % (37.0-80.0) Lymphocytes (%) (Auto) 27.7 % (10.0-50.0) Monocytes (%) (Auto) 9.4 % (0.0-12.0) Eosinophils (%) (Auto) 3.7 % (0.0-7.0) Basophils (%) (Auto) 0.5 % (0.0-2.0) Neutrophils # (Auto) 4.3 10 ^3/uL (1.6-8.6) Lymphocytes # (Auto) 2.0 10 ^3/uL (0.4-5.4) Monocytes # (Auto) 0.7 10 ^3/uL (0-1.3) Eosinophils # (Auto) 0.3 10 ^3/uL (0-0.8) Basophils # (Auto) 0 10 ^3/uL (0-0.2) Nucleated Red Blood Cells 0.0 % Sodium Level 141 mmol/L (136-145) Potassium Level 3.6 mmol/L (3.5-5.1) Chloride Level 105 mmol/L (98-107) Carbon Dioxide Level 27 mmol/L (20-31) Anion Gap 9 (5-15) Blood Urea Nitrogen 12 mg/dL (9-23) Creatinine 0.74 mg/dL (0.700-1.30) Glomerular Filtration Rate Calc 102 mL/min (>90) BUN/Creatinine Ratio 16.2 (10.0-20.0) Serum Glucose 95 mg/dL (74-106) Calcium Level 8.4 mg/dL (8.7-10.4) Total Bilirubin 0.8 mg/dL (0.2-1.0) Aspartate Amino Transferase (AST) 88 U/L (13-40) Alanine Aminotransferase (ALT) 27 U/L (7-40) Alkaline Phosphatase 77 U/L (46-116) Total Protein 6.8 g/dL (5.7-8.2) Albumin 3.9 g/dL (3.2-4.8) Prothrombin Time 9.9 sec (9.3-11.8) Prothrombin Time INR 0.93 (0.9-1.15) Activated Partial Thromboplast Time 36.3 SEC (24.5-34.5) Troponin I High Sensitivity 2976 ng/L (</=54) Urine Color Yellow (Yellow) Urine Clarity Turbid (Clear) Urine pH 6.0 (5.0-9.0) Urine Specific [place] 1.027 (1.001-1.035) Urine Protein Trace (Negative) Urine Ketones Negative (Negative) Urine Blood Negative /uL (Negative) Urine Nitrite Negative (Negative) Urine Bilirubin Negative (Negative) Urine Urobilinogen Normal mg/dL (Negative) Urine Leukocyte Esterase Negative /uL (Negative) Urine RBC 10 /hpf (0 - 3) Urine Microscopic WBC < 1 /HPF (0-3) Urine Squamous Epithelial Cells None seen /hpf (<5) Urine Bacteria None seen /hpf (None Seen) Urine Mucus Few (None Seen) Urine Yeast (Budding) Occasional /hpf (None Urine Glucose Normal mg/dL (Normal) Urine Opiates Screen Neg (NEGATIVE) Urine Fentanyl Screen Neg (NEGATIVE) Urine Barbiturates Screen Neg (NEGATIVE) Urine Phencyclidine Screen Neg (NEGATIVE) Urine Amphetamines Screen Pos (NEGATIVE) Urine Benzodiazepines Screen Neg (NEGATIVE) Urine Cocaine Screen Neg (NEGATIVE) Urine Cannabinoids Screen Neg (NEGATIVE) Magnesium Level 1.9 mg/dL (1.6-2.6) Triglycerides Level 123 mg/dL (< 150) Cholesterol Level 253 mg/dL (< 200) LDL Cholesterol 188 mg/dL (< 100) HDL Cholesterol 57 mg/dL (40-59) Test 06/06/25 01:01 Hemoglobin A1c 5.8 % A1C (<5.7) B-Type Natriuretic Peptide 143.60 pg/mL (0-100) Vitamin B12 Level 274 pg/mL (211-911) Vitamin D 25-Hydroxy 23.1 ng/mL (30.0-100) Thyroid Stimulating Hormone (TSH) 1.83 uIU/mL (0.55-4.78) Other Laboratory Tests 06/07/25 05:29 Brief Hx & Hospital Course: Patient is a 60-year-old male with no significant medical history presented to the hospital with a chief complaint of chest pain which was typical chest pain for 4 days prior to admission. On arrival to the ER patient's EKG showed sinus rhythm with nonspecific ST segment depression in lateral leads and Q-waves in inferior leads. Troponin levels were elevated and trended up in 3000s. Cardiology were consulted and patient underwent left heart catheterization with PTCA and stenting of the LAD diagonal and was started on dual antiplatelet therapy with aspirin and clopidogrel. Patient was also seen to be hypertensive for which he was started on losartan with a adequate control of blood pressure. On physical examination patient did have bilateral lower zone rales and was given Lasix which improved his shortness of breath and was discharged home on low-dose Lasix for 14 days. Echocardiogram showed LVEF 50-55% with mild hypokinesis in the apical septal wall. Patient discharged home in stable condition and advised to follow up in the discharge clinic in 1 week and follow up with the Cardiology to be scheduled in 2-4 weeks. Discharge plan: Medications: Aspirin 81 mg, Plavix 75 mg, metoprolol succinate 25 mg, losartan 75 mg, atorvastatin 40 mg, Lasix 20 mg daily for 14 days, potassium 10 mEq daily for 14 days Follow up in the discharge clinic and cardiology outpatient Physical exam: Skin - Patients skin is warm and dry. HEENT - normocephalic, atraumatic, moist mucous membranes. Neck - full ROM, no LAD, no JVD Pulmonary - B/L clear breath sounds cardiovascular - regular S1,S2 heard, no added sounds, no murmurs heard. GI - soft, nontender abdomen. no hepatospleenomegaly. Bowel sounds normoactive Neurological - Patient is A/O X4 . Bilateral upper extremity strength 5/5, bilateral lower extremity strength 5/5, no facial droop, normal speech, no tremor, no sensory deficiets. Time spent on discharge planning 34 mins Consults/Reason for consult Cardiology consult for NSTEMI Operations or Procedures Operative Report - 2 Report Details Date: 06/06/25 Preop Diagnosis: CAD. Acute coronary syndrome. Postop Diagnosis: PTCA stent of the LAD and diagonal bifurcation. Surgeon: Alice Bell MD Anesthesiologist: Conscious sedation Anesthesia: General, Mac Consent: The patient was informed of the risks and benefits of the procedure. These include but are not limited to complications of anesthesia, postoperative infection, incomplete relief of symptoms, recurrence of symptoms, damage to blood vessels, nerves and tendons, deep venous thrombosis, pulmonary embolism and possible need for repeat surgery in the future. Complications: No complications Findings: Severe stenosis of the LAD diagonal bifurcation Indications for Surgery: Chest pain acute coronary syndrome Name of Procedure Performed Left heart catheterization bilateral cine coronary angiography. Left ventriculography. PTCA and stenting of the LAD diagonal. Intravascular ultrasound evaluation of the LAD. Procedure Details Procedure Details: Prior local anesthesia with 2% lidocaine to the right wrist and full informed consent obtained the patient was prepped and draped in usual fashion followed by placement of a six Vincentian sheath into the radial artery. We then used a three five EBU guide perform angiography of both right and left coronary ostium and a multipurpose catheter for ventriculography without complications. Details of angioplasty as will be delineated below. Hemodynamics: Aortic blood pressure was 150/80 end-diastolic pressure was 16. There was no gradient across the aortic valve on pullback. Coronary anatomy: The RCA is large and dominant PDA and posterolateral branches are normal as is the RCA The left main is large. It is normal. Left anterior descending is a large vessel. At the level of the 1st diagonal there was a 99% subtotal stenosis with LD is aorta one flow into the LAD and diagonal vessel. The mid and distal segments of the LAD are otherwise within normal limits. Circumflex has two obtuse marginals free of significant disease. Ventriculography in the MCMILLAN projection shows an EF of approximately 40% with anterior apical hypokinesis. Angioplasty was performed for which a three five EBU guide was placed into the left main and a Specter wire placing each of the vessels at the level of the bifurcation into the diagonal and LAD. We performed intravascular ultrasound evaluation of the left anterior descending coronary artery noting it to be a three five vessel distally and a four five vessel proximal. We pre-dilated the left anterior descending coronary artery with a three five balloon. We then placed a 3-0 by 12 mm stent into the diagonal and inflation of the toe proximally 14 atmospheres. We have placed a three five stent distal to the diagonal and retracted the stent after retracting the diagonal balloon performed a DK crush stenting technique crushing the diagonal stent into the left anterior descending coronary artery with the LAD stent at a proximally 14 atmospheres. We then retracted the wire from the diagonal and reinserted the wire and placed a 3-0 noncompliant balloon into the diagonal and dilated through the struts. We then took a 4.5 mm noncompliant balloon and dilated from the diagonal artery into the proximal LAD at approximately 14 atmospheres. Dual balloon Kissing technique was used on the diagonal and LAD simultaneously. There was excellent antegrade flow without thrombus formation under dissection into the diagonal and LAD. The patient was moving significantly and lifted his right arm. As a consequence we lost wires in both diagonal and LAD arteries, and extra time, contrast and fluoroscopy were necessary to reestablish proper patency with postdilatation of the LAD and diagonal arteries. Patient tolerated the procedure well no complications . Impression: Successful PTCA and stenting of LAD diagonal bifurcation with a DK crushing balloon technique. Decreased left ventricular ejection fraction. Mildly elevated left ventricular end-diastolic pressures. Recommendations: Dual antiplatelet therapy risk factor modification to continue. Condition Good Disposition 2 Still a Patient Date of Service: Jun 06, 2025 Billing Provider: ALICE BELL Sr., MD Cardiology Common Codes: 37099-PIZWNNE INP/OBS CARE (High) Cardiology Procedure Codes: 59973 -PTCA W/STENT PLACEMENT, 45492-MABX ADD CORONARY BRANCH, 08025-BNGF HEART CATH W/INTRA INJ ALICE BELL Sr., MD Jun 06, 2025 18:28 Condition at Discharge: Good Final Diagnosis/Problems List nstemi type 1 S/p PTCA of LAD and diagonal bifurcation Dyslipidemia h/o methamphetamine use Discharge Disposition: Home Discharge Instruct/Medications Diet: Cardiac 2g Na,low cholest Activity: No Restrictions, As Tolerated Follow Up/Referral: F/u in the discharge clinic in one week F/i in the cardiology outpatient clinic in 2-4 weeks Medications: as per EMR Scheduled Aspirin (Aspir-Low), 81 MG PO DAILY Atorvastatin Calcium (Atorvastatin Calcium), 40 MG PO HS Clopidogrel Bisulfate (Clopidogrel), 75 MG PO DAILY Furosemide (Lasix), 1 TAB PO DAILY Losartan Potassium (Losartan Potassium), 75 MG PO DAILY Metoprolol Succinate (Metoprolol Succinate Er), 25 MG PO HS Potassium Chloride (Potassium Chloride Cr), 10 MEQ PO DAILY Discharge Statement: "Patient was advised to return to the ER or call 911 if any headaches, dizziness, shortness of breath, chest pain, abdominal pain, bleeding, fevers, or worsening of medical condition. Patient was counseled about treatment plan, medications, possible side effects, patientverbalized understanding. All questions were answered to the best of my ability. This discharge took greater then 30 minutes in planning, reviewing documentation, counseling the patient, and discussing with other team members." ASSESSMENT ASSESSMENT Assessment nstemi type 1 Visit Coding STANDARD RES Billing Provider: MARIBELL IZAGUIRRE MD Date of Service if different f: Jun 07, 2025 Common Visit Codes: 49365-NCD/OBS DISCH DAY >30min FAROOQ MALAGON RESIDENT Jun 07, 2025 17:12
[2025-06-08] MEDS ORDERED: METOPROLOL SUCCINATE XL 50 MG TAB PO SCH (10:00)
--- NOTE | 2025-06-08 13:29 | ECG ---
[facility] Test Date: 2025-06-07 Test Time: 12:03:48 Pat Name: ALEXANDRA DINH Department: Respiratoy Room: 0212T B Gender: M Animator: [id number] : 1965 Requested By: ALICE RON Order Number: [id number] Reading MD: Alice Ron Measurements Intervals [place] Rate: 66 P: -12 GA: 136 QRS: 60 QRSD: 93 T: 148 QT: 443 QTc: 465 Interpretive Statements Sinus rhythm Abnormal R-wave progression, late transition Abnrm T, consider ischemia, anterolateral lds Borderline ST elevation, anterior leads Electronically Signed On 06-12-2025 18:23:35 PST by Alice Ron Please click the below link to view image of tracing.
--- NOTE | 2025-06-09 13:44 | ECG ---
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
== END 2025-06-07 16:23 | disposition home or self-care (01) | DRG 322 ==
LOC: ER 00:53 → OVERFLOW 02:28 → TELE-CENTR 20:28
PROVIDERS: ADMIT Student in an Organized Health Care Education/Training Program; ATTEND Student in an Organized Health Care Education/Training Program
PROC: 0270346 Dilation of Coronary Artery, One Artery, Bifurcation, with Drug-eluting Intraluminal Device, Percutaneous Approach (ICD-10-PCS; principal; 2025-06-06)
PROC: 4A023N7 Measurement of Cardiac Sampling and Pressure, Left Heart, Percutaneous Approach (ICD-10-PCS; 2025-06-06)
PROC: B211YZZ Fluoroscopy of Multiple Coronary Arteries using Other Contrast (ICD-10-PCS; 2025-06-06)
PROC: B215YZZ Fluoroscopy of Left Heart using Other Contrast (ICD-10-PCS; 2025-06-06)
PROC: B240ZZ3 Ultrasonography of Single Coronary Artery, Intravascular (ICD-10-PCS; 2025-06-06)
DX: I21.4 Non-ST elevation (NSTEMI) myocardial infarction (principal); E66.01 Morbid (severe) obesity due to excess calories; F10.10 Alcohol abuse, uncomplicated; I10 Essential (primary) hypertension; Z68.34 Body mass index [BMI] 34.0-34.9, adult; E78.5 Hyperlipidemia, unspecified; F15.90 Other stimulant use, unspecified, uncomplicated; F17.210 Nicotine dependence, cigarettes, uncomplicated; I25.10 Atherosclerotic heart disease of native coronary artery without angina pectoris; Z79.899 Other long term (current) drug therapy
CPT/HCPCS: 36415; 71045; 80048; 80053; 80061; 80307; 81001; 82306; 82607; 83036; 83735; 83880; 84443; 84484; 85025; 85610; 85730; 92941; 92978; 93005; 93306; 93458; 96374; 99152; 99291; G0378; J2250; Q9967